=== PATIENT | male | born 1985 | race Caucasian/White ===

== ENCOUNTER 2017-07-09 09:57 | Emergency (ER) | payer MEDICAID ==
[~2017-07-09] VITALS: Ht 182.9 cm; Wt 153.3 kg
[2017-07-09 10:25] VITALS: Ht 182.9 cm; Wt 153.3 kg
[2017-07-09 13:04] VITALS: BP 159/80
== END 2017-07-09 13:04 | disposition home or self-care (01) ==
LOC: ED 09:57
DX: J20.8 Acute bronchitis due to other specified organisms (principal)

== ENCOUNTER 2017-10-23 08:45 | Emergency (ER) | payer SELFPAY ==
[~2017-10-23] VITALS: Ht 182.9 cm; Wt 156.1 kg
[2017-10-23 08:49] VITALS: Ht 182.9 cm; Wt 156.1 kg
[2017-10-23 10:31] VITALS: BP 142/78
== END 2017-10-23 10:30 | disposition home or self-care (01) ==
LOC: ED 08:45
DX: J06.9 Acute upper respiratory infection, unspecified (principal); R04.2 Hemoptysis
CPT/HCPCS: Q0092